=== PATIENT | female | born 1960 | race Caucasian/White ===

== ENCOUNTER → 2017-03-05 | Outpatient (CLI) | payer OTHER ==
[~2017-03-05] MED LIST: CHOL500045 PO; CYCL-259 PO; GLIP5TAB10 PO; INSULIN SQ-INSULIN; LISI1TAB7 PO; LOVA20TA2 PO; METF-688 PO; MULT-717 PO
[2017-03-05 16:55] LABS: BLOOD UREA NITROGEN 21 mg/dL (7-18)
[2017-03-05 16:59] LABS: ASPARTATE AMINO TRANSFERASE 15 U/L (15-37)
== END | disposition home or self-care (01) ==
LOC: STAR 15:43
PROVIDERS: ATTEND Thoracic Surgery (Cardiothoracic Vascular Surgery)
DX: Z01.818 Encounter for other preprocedural examination (principal); E11.9 Type 2 diabetes mellitus without complications; E78.00 Pure hypercholesterolemia, unspecified; I10 Essential (primary) hypertension; E66.01 Morbid (severe) obesity due to excess calories; K42.9 Umbilical hernia without obstruction or gangrene; L08.82 Omphalitis not of newborn
CPT/HCPCS: 36415; 80053; 93005

== ENCOUNTER 2017-03-19 06:27 | Day surgery (SDC) | payer OTHER ==
[2017-03-05 16:14] VITALS: BP 165/103
[~2017-03-19] VITALS: Ht 162.6 cm; Wt 126.0 kg
[2017-03-19] MEDS ORDERED: BUPIVACAINE/PF 0.5% ONE (06:51)
[2017-03-19] MEDS ORDERED: EPINEPHRINE 1 MG/ML, 1ML ONE (06:51)
[2017-03-19] MEDS ORDERED: LIDOCAINE 1%, 2ML ONE (07:00)
[2017-03-19] MEDS ORDERED: LORA2TAB PO (07:29)
[2017-03-19] MEDS ORDERED: LACTATED RINGERS 1,000 ML IV SCH ×2 (07:31→10:45)
[2017-03-19] MEDS ORDERED: LIDOCAINE 1%, 2ML SQ PRN (08:00)
[2017-03-19] MEDS ORDERED: FENTANYL PF 100 MCG/2ML ONE ×3 (09:53→10:55)
[2017-03-19] MEDS ORDERED: MIDAZOLAM 1 MG/ML, 2ML ONE ×2 (09:53→10:56)
[2017-03-19] MEDS ORDERED: PROPOFOL 10 MG/ML, 20ML ONE (09:55)
[2017-03-19] MEDS ORDERED: ONDANSETRON 2MG/ML, 2ML ONE ×2 (09:55)
[2017-03-19] MEDS ORDERED: SUCCINYLCHOLINE 20 MG/ML, 10ML ONE (09:55)
[2017-03-19] MEDS ORDERED: DEXAMETHASONE 4 MG/ML, 1ML ONE ×2 (09:55)
[2017-03-19] MEDS ORDERED: CEFAZOLIN 1,000 MG ONE ×2 (09:55)
[2017-03-19] MEDS ORDERED: ROCURONIUM 10MG/ML,5ML ONE (09:55)
[2017-03-19] MEDS ORDERED: hydrALAzine 20 MG/ML, 1ML IV PRN (10:00)
[2017-03-19] MEDS ORDERED: ONDANSETRON 2MG/ML, 2ML IVPush PRN ×2 (10:00→11:00)
[2017-03-19] MEDS ORDERED: ALBUTEROL SULFATE 2.5 MG/3 ML NPPB PRN (10:00)
[2017-03-19] MEDS ORDERED: OXYcodone 5 MG/5 ML ORAL.SOL UDC PO PRN (10:00)
[2017-03-19] MEDS ORDERED: MEPERIDINE/PF 25MG/0.5ML IVPush PRN (10:00)
[2017-03-19] MEDS ORDERED: ACETAMINOPHEN 325 MG TABLET PO PRN (10:00)
[2017-03-19] MEDS ORDERED: PROMETHAZINE 25 MG/ML, 1ML IV PRN (10:00)
[2017-03-19] MEDS ORDERED: HYDROmorphone 1 MG/ML, 1ML IV PRN (10:00)
[2017-03-19] MEDS ORDERED: LABETALOL 5MG/ML, 20ML IV PRN (10:00)
[2017-03-19] MEDS ORDERED: GLYCOPYRROLATE 0.4 MG/2 ML, 2ML ONE ×2 (10:12→10:31)
[2017-03-19] MEDS ORDERED: NEOSTIGMINE 1 MG/ML, 10ML ONE (10:31)
[2017-03-19] MEDS ORDERED: NALOXONE 0.4 MG/ML, 1ML ONE (10:34)
[2017-03-19] MEDS ORDERED: KETOROLAC 30 MG/1 ML ONE (10:55)
[2017-03-19] MEDS ORDERED: ACETAMINOPHEN 650 MG/20.3 ML UDC ONE (10:55)
[2017-03-19] MEDS ORDERED: OXYcodone 5 MG/5 ML ORAL.SOL UDC ONE (10:56)
[2017-03-19] MEDS ORDERED: HYDROcodone/APAP 5/325 TABLET PO PRN (11:00)
[2017-03-19] MEDS ORDERED: KETOROLAC 30 MG/1 ML IVPush PRN (11:00)
[2017-03-19] MEDS ORDERED: morphine SULFATE 10 MG/ML, 1ML IVPush PRN (11:00)
[2017-03-19] MEDS: FENTANYL PF 100 MCG/2ML IV PRN ×2 (11:01→11:06)
[2017-03-19] MEDS: MIDAZOLAM 1 MG/ML, 2ML IV PRN ×2 (11:02→11:06)
== END 2017-03-19 12:50 ==
LOC: OUT 06:27
PROVIDERS: ATTEND Thoracic Surgery (Cardiothoracic Vascular Surgery)
DX: K42.0 Umbilical hernia with obstruction, without gangrene (principal); E11.9 Type 2 diabetes mellitus without complications; E78.00 Pure hypercholesterolemia, unspecified; I10 Essential (primary) hypertension; E66.01 Morbid (severe) obesity due to excess calories; Z68.42 Body mass index [BMI] 45.0-49.9, adult; Z98.890 Other specified postprocedural states; Z72.89 Other problems related to lifestyle; Z87.891 Personal history of nicotine dependence
CPT/HCPCS: 49653; 82962; C1781; J0171; J0330; J0690; J1100; J1885; J2250; J2310; J2405; J2704; J2710; J3010; J3490